=== PATIENT | female | born 1945 | race Two or more races ===

== ENCOUNTER 2017-02-06 00:07 | Emergency (ER) | payer MEDICARE, OTHER ==
[~2017-02-06] VITALS: Ht 172.7 cm; Wt 63.5 kg
[~2017-02-06 00:07] MED LIST: ALBU8.5H2 IH; ATOR10TA PO; CLON1TAB4 PO; DOCU-25 PO; ESOM40CA PO; FLUT1DIS3 IH; HYDR-548 PO; LORA1TAB PO; LOSA50TA21 PO; PREG50CA PO; RAME8TAB9 PO
--- NOTE | 2017-02-06 00:30 | NUR ---
PT CO ANXIET AND HX OF PANIC ATTACK. PT STATES THAT THE DR CALLED HER DUE TO LOW HGB LEVELS. A/OX4. NO ACUTE DISTRESS NOTED. DR CARCAMO AT BEDSIDE FOR EVALUATION.
--- NOTE | 2017-02-06 00:48 | NUR ---
LAB TO DRAW BLOOD AT BEDSIDE
[2017-02-06 01:04] LABS: HEMATOCRIT 26 % (33-45); HEMOGLOBIN 7.8 g/dL (11.5-14.8); MEAN CORPUSCULAR HEMOGLOBIN 19 PG (26.0-33.0); MEAN CORPUSCULAR HGB CONC 30 g/dl (31.0-36.0); MEAN CORPUSCULAR VOLUME 65 fL (82-100); PLATELET COUNT (AUTO) 449 /CMM (150-450); RDW COEFFICIENT OF VARIATION 25.3 (11.5-15.0); RED BLOOD CELL COUNT(AUTO) 4.06 MIL/uL (4.0-5.2); WHITE BLOOD COUNT (AUTO) 10.4 K/uL (4.3-11.0)
[2017-02-06 01:24] LABS: ANISOCYTOSIS 1+; HYPOCHROMASIA 1+; LYMPHOCYTES % (MANUAL) 20 % (16-48); MONOCYTES % (MANUAL) 4 % (0-11.0); NEUTROPHILS % (MANUAL) 76 (42-76); PLATELET ESTIMATE ADEQUATE
--- NOTE | 2017-02-06 02:07 | NUR ---
MOVE PT OT RM 6 PER PT'S REQUEST
[2017-02-06] MEDS ORDERED: LORAZEPAM INJ 2 MG/ML VIAL ONE (02:09)
[2017-02-06] MEDS ORDERED: LORAZEPAM INJ 2 MG/ML VIAL IV ONE (02:30)
[2017-02-06] MEDS ORDERED: IV NS 0.9% 250 ML IV ONE (02:34)
[2017-02-06] MEDS ORDERED: BLOOD IV SET 1 EA INFUS.SET MC ONE (02:34)
--- NOTE | 2017-02-06 02:45 | NUR ---
Nori coleman in [facility] - 02/06/17 at 0311 by IZAIAH KAREL AT BEDSIDE FOR EVAL OF PATIENT
--- NOTE | 2017-02-06 02:59 | NUR ---
START 1 UNIT OF PRBC. KELLY DOWLING TO VERIFY BLOOD. NO ACUTE DISTRESS NOTED AT THIS TIME. WILL CONT TO MONITOR
--- NOTE | 2017-02-06 04:54 | NUR ---
PRBC DONE. NO ADVERSE REACTION NOTED. LAB CALLED FOR REDRAW
--- NOTE | 2017-02-06 05:14 | NUR ---
LAB AT BEDSIDE FOR BLOOD DRAW
[2017-02-06 05:20] LABS: HEMATOCRIT 28 % (33-45); HEMOGLOBIN 8.3 g/dL (11.5-14.8); MEAN CORPUSCULAR HEMOGLOBIN 20 PG (26.0-33.0); MEAN CORPUSCULAR HGB CONC 30 g/dl (31.0-36.0); MEAN CORPUSCULAR VOLUME 67 fL (82-100); PLATELET COUNT (AUTO) 405 /CMM (150-450); RED BLOOD CELL COUNT(AUTO) 4.12 MIL/uL (4.0-5.2); WHITE BLOOD COUNT (AUTO) 9.9 K/uL (4.3-11.0)
[2017-02-06 05:45] LABS: ANISOCYTOSIS 1+; HYPOCHROMASIA 1+; LYMPHOCYTES % (MANUAL) 17 % (16-48); MONOCYTES % (MANUAL) 16 % (0-11.0); NEUTROPHILS % (MANUAL) 67 (42-76)
[2017-02-06 05:46] LABS: PLATELET ESTIMATE ADEQUATE
[2017-02-06 05:47] VITALS: BP 144/84
--- NOTE | 2017-02-06 05:48 | NUR ---
IV removed. Catheter intact and site benign. Pressure and 4x4 applied to site. No bleeding noted.
--- NOTE | 2017-02-06 06:22 | NUR ---
Patient discharged to home in stable condition. Written and verbal after care instructions given. Patient verbalizes understanding of instruction.
== END 2017-02-06 06:30 | disposition home or self-care (01) ==
LOC: ER 00:10
DX: F41.9 Anxiety disorder, unspecified (principal); D50.9 Iron deficiency anemia, unspecified; Z86.73 Personal history of transient ischemic attack (TIA), and cerebral infarction without residual deficits
CPT/HCPCS: 36415; 85025-TC; 86850-TC; 86921-TC; A4606; J2060; J7050; P9016-BL; Z7610

== ENCOUNTER 2017-06-30 21:59 | Inpatient (IN) | payer MEDICARE, OTHER ==
[~2017-06-30] VITALS: Ht 167.6 cm; Wt 87.5 kg
[2017-06-30 23:25] LABS: HEMATOCRIT 25 % (33-45); HEMOGLOBIN 7.2 g/dL (11.5-14.8); MEAN CORPUSCULAR HEMOGLOBIN 19 PG (26.0-33.0); MEAN CORPUSCULAR HGB CONC 29 g/dl (31.0-36.0); MEAN CORPUSCULAR VOLUME 65 fL (82-100); PLATELET COUNT (AUTO) 635 /CMM (150-450); RDW COEFFICIENT OF VARIATION 20.3 (11.5-15.0); RED BLOOD CELL COUNT(AUTO) 3.79 MIL/uL (4.0-5.2); WHITE BLOOD COUNT (AUTO) 8.7 K/uL (4.3-11.0)
[2017-06-30 23:41] LABS: CALCIUM, SERUM 9.8 mg/dL (8.5-10.1); CREATININE 0.7 mg/dL (0.6-1.3); POTASSIUM 4.3 mmol/L (3.5-5.1)
[2017-07-01] VITALS (12 sets, daily range): BP systolic 114–147; BP diastolic 54–94
[2017-07-01 04:46] LABS: LYMPHOCYTES % (MANUAL) 19 % (16-48); MONOCYTES % (MANUAL) 6 % (0-11.0); NEUTROPHILS % (MANUAL) 75 (42-76)
[2017-07-01 09:45] LABS: BASOPHILS % (AUTO) 0.1 % (0.0-2.0); EOSINOPHILS # (AUTO) 0.2 /CMM (0.0-0.7); HEMATOCRIT 27 % (33-45); HEMOGLOBIN 8.3 g/dL (11.5-14.8); LYMPHOCYTES # (AUTO) 2.9 /CMM (0.8-4.8); LYMPHOCYTES % (AUTO) 30.6 % (20.0-44.0); MEAN CORPUSCULAR HEMOGLOBIN 21 PG (26.0-33.0); MEAN CORPUSCULAR HGB CONC 31 g/dl (31.0-36.0); MEAN CORPUSCULAR VOLUME 68 fL (82-100); MONOCYTES # (AUTO) 0.9 /CMM (0.1-1.30); MONOCYTES % (AUTO) 9.3 % (2.0-12.0); NEUTROPHILS # (AUTO) 5.5 /CMM (1.8-8.9); PLATELET COUNT (AUTO) 587 /CMM (150-450); RDW COEFFICIENT OF VARIATION 22.2 (11.5-15.0); RED BLOOD CELL COUNT(AUTO) 3.93 MIL/uL (4.0-5.2); WHITE BLOOD COUNT (AUTO) 9.5 K/uL (4.3-11.0)
[2017-07-01 10:11] LABS: EOSINOPHILS % (MANUAL) 1 % (0-4); LYMPHOCYTES % (MANUAL) 32 % (16-48); MONOCYTES % (MANUAL) 9 % (0-11.0); NEUTROPHILS % (MANUAL) 58 (42-76)
== END 2017-07-01 13:10 | disposition left against medical advice (07) | DRG 812 ==
LOC: ER 22:00 → MED 07-01 01:26
PROVIDERS: ADMIT Internal Medicine; ATTEND Internal Medicine
PROC: 30233N1 Transfusion of Nonautologous Red Blood Cells into Peripheral Vein, Percutaneous Approach (ICD-10-PCS; principal; 2017-07-01)
DX: D50.9 Iron deficiency anemia, unspecified (principal); J44.9 Chronic obstructive pulmonary disease, unspecified; I10 Essential (primary) hypertension; K21.9 Gastro-esophageal reflux disease without esophagitis; Z86.73 Personal history of transient ischemic attack (TIA), and cerebral infarction without residual deficits; Z79.899 Other long term (current) drug therapy; Z90.710 Acquired absence of both cervix and uterus; M19.90 Unspecified osteoarthritis, unspecified site; I25.10 Atherosclerotic heart disease of native coronary artery without angina pectoris; G89.29 Other chronic pain; F41.9 Anxiety disorder, unspecified; E78.5 Hyperlipidemia, unspecified; E66.9 Obesity, unspecified
CPT/HCPCS: 36415; 80048-TC; 85025-TC; 86850-TC; 86921-TC; 87081-TC; A4606; C9113; J2270; P9016-BL; Z7610

== ENCOUNTER 2019-11-26 20:28 | Emergency (ER) | payer MEDICARE, OTHER ==
[~2019-11-26] VITALS: Ht 167.6 cm; Wt 82.8 kg
[~2019-11-26 20:28] MED LIST changes: -ALBU8.5H2 IH; +ALBU8.5H8 IH; +CLON1TAB12 PO; -CLON1TAB4 PO; +DOCU-141 PO; -DOCU-25 PO; +HYDR-4354 PO; -HYDR-548 PO; -LOSA50TA21 PO; +LOSA50TA39 PO; +RAME8TAB15 PO; -RAME8TAB9 PO
--- NOTE | 2019-11-26 20:35 | NUR ---
LISBET FROM [facility] S/P NEAR SYNCOPE. +ETOH, -HEAD INJURY ALSO C/O L SIDE BODY PAIN. PER RA, BS 77. PT STATES SHE HAS HAD MULTIPLE FALLS RECENTLY AND LIVES ALONE. DENIES SOB, CP, N/V. DENIES VISION CHANGES. AOX4, AMBULATORY WITH CANE, VSS, RR EVEN AND UNLABORED ON RA. SKIN WARM, DRY, INTACT. MADE COMFORTABLE AND READY FOR EVAL.
[2019-11-26] MEDS ORDERED: IBUPROFEN 600 MG TABLET PO ONE ×2 (21:00→21:14)
--- NOTE | 2019-11-26 21:00 | NUR ---
XRAY AT BEDSIDE
--- NOTE | 2019-11-26 21:15 | NUR ---
ANIKET ALCALA AT BEDSIDE FOR EKG
[2019-11-26] MEDS ORDERED: IBUPROFEN 400 MG TABLET ONE (22:53)
--- NOTE | 2019-11-26 22:55 | NUR ---
Patient discharged to home in stable condition. Written and verbal after care instructions given. Patient verbalizes understanding of instruction.
[2019-11-26] MEDS ORDERED: IBUPROFEN 400 MG TABLET PO ONE (23:00)
[2019-11-26 23:01] VITALS: BP 121/72
== END 2019-11-26 23:03 | disposition home or self-care (01) ==
LOC: ER 20:32
DX: R55 Syncope and collapse (principal); M25.551 Pain in right hip; M54.5 Low back pain; I10 Essential (primary) hypertension; F10.10 Alcohol abuse, uncomplicated; E11.9 Type 2 diabetes mellitus without complications; Y90.9 Presence of alcohol in blood, level not specified; Z86.73 Personal history of transient ischemic attack (TIA), and cerebral infarction without residual deficits; Z90.710 Acquired absence of both cervix and uterus; Z98.890 Other specified postprocedural states; Z60.2 Problems related to living alone; Z79.899 Other long term (current) drug therapy
CPT/HCPCS: 71100-TC; 73502